=== PATIENT | female | born 1945 | race Caucasian/White ===

== ENCOUNTER 2020-09-22 12:25 | Inpatient (IN) | payer MEDICARE, OTHER ==
[~2020-09-22] VITALS: Ht 165.1 cm; Wt 74.4 kg
[~2020-09-22 12:25] MED LIST: ALEN70TA3 PO; ASCO-352 PO; CALC1POW PO; CHOL200026 PO; DOCU-141 PO; LEVO100T13 PO; LORA10TA7 PO; MELO-107 PO; OXYC30TA2 PO; PANT40TA2 PO; [UNRECOGNIZED DRUG - CODE] PO
[2020-09-22] MEDS ORDERED: IV NS 0.9% 1,000 ML BAG IV ONE (13:00)
[2020-09-22] MEDS ORDERED: CEFEPIME 1 GM in IV D5W 50 ML IV ONE (13:00)
[2020-09-22] MEDS ORDERED: VANCOMYCIN 1 GM in IV D5W 250 ML IV ONE (13:00)
[2020-09-22 13:22] LABS: BASOPHILS % (AUTO) 0.6 % (0.0-2.0); EOSINOPHILS % (AUTO) 0.2 % (0.0-6.0); HEMATOCRIT 46 % (33-45); HEMOGLOBIN 15.7 g/dL (11.5-14.8); LYMPHOCYTES # (AUTO) 0.2 /CMM (0.8-4.8); LYMPHOCYTES % (AUTO) 2.8 % (20.0-44.0); MEAN CORPUSCULAR HGB CONC 34 g/dl (31.0-36.0); MEAN CORPUSCULAR VOLUME 101 fL (82-100); MONOCYTES # (AUTO) 0.4 /CMM (0.1-1.30); MONOCYTES % (AUTO) 6.5 % (2.0-12.0); NEUTROPHILS # (AUTO) 4.9 /CMM (1.8-8.9); NEUTROPHILS % (AUTO) 89.9 % (43.0-81.0); PLATELET COUNT (AUTO) 112 /CMM (150-450); RED BLOOD CELL COUNT(AUTO) 4.53 MIL/uL (4.0-5.2); WHITE BLOOD COUNT (AUTO) 5.4 K/uL (4.3-11.0)
[2020-09-22 13:26] LABS: CALCIUM, SERUM 8.8 mg/dL (8.5-10.1); CARBON DIOXIDE 24 mmol/L (21-32); CHLORIDE 103 mmol/L (98-107); CREATININE 0.9 mg/dL (0.6-1.3); GLUCOSE 186 mg/dL (74-106); SODIUM SERUM 141 mmol/L (136-145); UREA NITROGEN, BLOOD 16 mg/dL (7-18)
[2020-09-22 13:28] LABS: POTASSIUM 2.5 mmol/L (3.5-5.1)
--- NOTE | 2020-09-22 13:28 | NUR ---
LAB CALLED POTASSIUM 2.5 ALBIN INFORMED.
[2020-09-22] MEDS ORDERED: CLOT15CR27 TP (13:30)
[2020-09-22] MEDS ORDERED: LEVO25TA7 PO (13:30)
[2020-09-22] MEDS ORDERED: SULF5DRO OP (13:30)
[2020-09-22] MEDS ORDERED: OMEP1PAC7 PO (13:30)
[2020-09-22] MEDS ORDERED: POTASSIUM CHLORIDE 20 MEQ TAB.PRT.SR PO ONE ×2 (13:30→14:10)
[2020-09-22] MEDS ORDERED: LOSA100T31 PO (13:30)
[2020-09-22] MEDS ORDERED: TRIA80OI TP (13:30)
[2020-09-22] MEDS ORDERED: IBUP-1953 PO (13:30)
[2020-09-22] MEDS ORDERED: METO25TA6 PO (13:30)
[2020-09-22] MEDS ORDERED: AMLO5TAB4 PO (13:30)
[2020-09-22 13:31] LABS: ALANINE AMINOTRANSFERASE 18 U/L (12-78); ALBUMIN 3.7 g/dL (3.4-5.0); ALKALINE PHOSPHATASE 113 U/L (46-116); ASPARTATE AMINOTRANSFERASE 21 U/L (15-37); BILIRUBIN,DIRECT 0.2 mg/dL (0.0-0.2); BILIRUBIN,TOTAL 0.8 mg/dL (0.2-1.0); TOTAL PROTEIN, SERUM 6.8 g/dL (6.4-8.2)
--- NOTE | 2020-09-22 13:31 | NUR ---
BIB ra frm snf s/o altered, febrile, and low o2 saturation. PT AAOX2, DENIES CP, DIZZINESS, N/V AT THIS TIME. PT PLACED ON ARCHITECTURAL DRAFTSMAN, SR. PLACED ON OXYGEN 6L, O2 SAT 96%. PT SEEN & EVAL'D BY DR. CUMMINGS. WILL CONT TO MONITOR.
[2020-09-22 13:56] LABS: BILIRUBIN,URINE NEGATIVE (NEGATIVE); COLOR,URINE YELLOW (YELLOW); LEUKOCYTE ESTERASE ,URINE NEGATIVE (NEGATIVE); NITRITE, URINE NEGATIVE (NEGATIVE); PROTEIN,URINE 100 mg/dl (NEGATIVE); UGLUCOSE NEGATIVE (NEGATIVE); UROBILINOGEN,URINE 0.2 EU/dL (0.2)
[2020-09-22] MEDS ORDERED: POTASSIUM CL. PREMIX PERIPHER. 100 ML ONE (14:10)
--- NOTE | 2020-09-22 14:15 | NUR ---
PT TO CT VIA [facility]
[2020-09-22 14:34] LABS: WBC,URINE 0-2 /HPF (0-3)
[2020-09-22 14:35] LABS: BACTERIA,URINE RARE /HPF (None Seen); SQUAMOUS EPITHELIAL CELL,UR 0-2 /HPF (None Seen)
[2020-09-22] MEDS: POTASSIUM CL. PREMIX PERIPHER. 50 ML IV SCH ×2 (14:46→15:40)
--- NOTE | 2020-09-22 15:02 | NUR ---
Pt assigned to 118-1
[2020-09-22] MEDS ORDERED: ONDANSETRON HCL/PF 4 MG/2 ML VIAL IV PRN (15:30)
[2020-09-22] MEDS ORDERED: METOPROLOL TARTRATE 25 MG TABLET PO SCH (15:30)
[2020-09-22] MEDS ORDERED: AMLODIPINE BESYLATE 5 MG TABLET PO SCH (15:30)
[2020-09-22] MEDS ORDERED: IOHEXOL-350 100 ML VIAL IV ONE (15:52)
[2020-09-22] MEDS ORDERED: CT SWABBABLE VALVE TRANS SET 1 EA INFUS.SET MC ONE (15:52)
[2020-09-22] MEDS ORDERED: IV NS 0.9% 250 ML IV ONE (15:52)
[2020-09-22] MEDS: IV NS 0.9% 1,000 ML IV SCH (16:00)
[2020-09-22] MEDS ORDERED: LABETALOL HCL IV 100MG VIAL IV PRN (16:00)
--- NOTE | 2020-09-22 16:00 | NUR ---
PT TO CT VIA [facility].
[2020-09-22] MEDS ORDERED: ACETAMINOPHEN 650 MG/20.3 ML UDC ONE ×2 (16:13→16:25)
[2020-09-22] MEDS ORDERED: LABETALOL HCL IV 100MG VIAL ONE (16:13)
[2020-09-22] MEDS: ACETAMINOPHEN 650 MG/20.3 ML UDC NG PRN (16:28)
--- NOTE | 2020-09-22 16:28 | NUR ---
MEDICATED PER DR. HONG'S ORDER, PT NORBERTO WELL.
[2020-09-22] MEDS ORDERED: VANCOMYCIN 1 GM in IV D5W 250 ML IV SCH (17:00)
--- NOTE | 2020-09-22 17:06 | NUR ---
REPORT GIVEN TO ARUNA RAMOS FOR BEVERLY.
[2020-09-22 17:29] VITALS: BP 149/65
--- NOTE | 2020-09-22 17:30 | NUR ---
OBJECT ORIENTED DEVELOPER NOTES RECEIVED PT FROM ER, DX SEPSIS, DR. VÁZQUEZ FOR MD, PT LETHARGIC,RESPONDS TO NAME AND TOUCH, IRRITATED. ON 4L O2 NASAL CANULA, NO SOB, RESPIRATION UNLABORED. COMPLAINS OF 10/10 GENERALIZED PAIN, SCREAMS WHEN BEING MOVED. WILL ADMINISTER PAIN MED IN A FEW. SINUS RHYTHM ON MONITOR. HAS LEFT HAND G 18 AND RT HAND G 20. BOTH FLUSHES WELL. BOTH SITES CLEAR. SKIN INTACT. UNIT ORIENTATION DONE, USE OF CALL LIGHT, UNABLE TO UNDERSTAND INSTRUCTIONS. SAFETY MEASURES IN PLACE. BED LOW LOCKED, CALL LIGHT WITHIN REACH WILL MONITOR.
[2020-09-22] MEDS: MORPHINE SULFATE INJ 2 MG/ML DISP.SYRIN IV PRN (17:42)
[2020-09-22] MEDS ORDERED: PIPERACILLIN /TAZOBACTAM 3.375 G in IV D5W 50 ML IV SCH (18:00)
--- NOTE | 2020-09-22 19:07 | NUR ---
RN NOTE ALL NEEDS MET. NOT IN ANY DISTRESS. ENDORSED TO NEXT SHIFT FOR BEVERLY.
--- NOTE | 2020-09-22 19:30 | NUR ---
RN NOTE RECEIVED PATIENT IN BED, AO X 2, IN NO S/SX OF ACUTE DISTRESS AT THIS TIME. SATURATION AT 95% ON 4L OXYGEN VIA NC, ST ON THE MONITOR, HR IS 103. NOTED IV SITE L HAND 18G, AND R HAND 20G, ALL HUBS PATENT AND FLUSHING WELL, NO S/S OF INFECTION OR INFILTRATION, WITH IV FLUID OF NS INFUSING AT 90 ML./HR. MI CATHETER CONNECTED TO URINE BAG IN PLACE, DRAINING TO A CLEAR, YELLOW OUTPUT. SAFETY MEASURES IMPLEMENTED. PATIENT BED ALARM IS ON. HEAD OF BED ELEVATED. BED IS LOCKED, IN LOWEST POSITION AND SIDE RAILS UP. CALL LIGHT WITHIN REACH OF THE PATIENT. WILL CONTINUE TO MONITOR AND REASSESS FOR ANY CHANGES.
[2020-09-22 20:00] VITALS: BP 198/104
[2020-09-22] MEDS: CEFEPIME 1 GM in IV D5W 50 ML IV SCH (20:35)
[2020-09-22] MEDS: ENOXAPARIN SODIUM 40 MG/0.4 ML DISP.SYRIN SQ SCH (20:42)
[2020-09-22] MEDS: METOPROLOL TARTRATE 25 MG TABLET PO SCH (20:42)
[2020-09-22] MEDS: hydrALAZINE HCL IV 20 MG VIAL IV PRN (22:38)
[2020-09-23] VITALS: BP 179/102
[2020-09-23] MEDS: MORPHINE SULFATE INJ 2 MG/ML DISP.SYRIN IV PRN ×4 (00:01→18:29)
[2020-09-23] MEDS: ACETAMINOPHEN 650 MG/20.3 ML UDC NG PRN ×2 (01:23→20:03)
[2020-09-23] MEDS: IV NS 0.9% 1,000 ML IV SCH (03:22)
[2020-09-23] MEDS: VANCOMYCIN 1 GM in IV D5W 250 ML IV SCH (05:23)
[2020-09-23] MEDS ORDERED: LEVOTHYROXINE SODIUM 100 MCG TABLET PO SCH (07:30)
--- NOTE | 2020-09-23 07:30 | NUR ---
RN OPENING NOTES PATIENT PRESENT IN BED, A/OX1,, ON NC @ 4L, CONT O2 SAT IN PLACE, SPO2 97%, NSR ON TELE-MONOTR 83 HR NOTES, WHEEZING SOUNDS THROUGH LUNGS, PRODUCTIVE COUGH NOTED, PULLED OUT R HAND IV, L HAND IV PATENT AND INTACT, MI IN PLACE, DRAINING YELLOW URINE BY GRAVITY, SAFETY MEASURES IN PLACE, CALL LIGHT IN REACH, HOB ELEVATED, WILL CONT TO MONITOR
[2020-09-23] MEDS: PANTOPRAZOLE 40 MG TABLET.DR PO SCH (07:57)
[2020-09-23 07:58] LABS: BASOPHILS % (AUTO) 0.3 % (0.0-2.0); HEMATOCRIT 45 % (33-45); HEMOGLOBIN 15.7 g/dL (11.5-14.8); LYMPHOCYTES # (AUTO) 0.3 /CMM (0.8-4.8); LYMPHOCYTES % (AUTO) 3.7 % (20.0-44.0); MEAN CORPUSCULAR HGB CONC 35 g/dl (31.0-36.0); MEAN CORPUSCULAR VOLUME 100 fL (82-100); MONOCYTES # (AUTO) 0.5 /CMM (0.1-1.30); MONOCYTES % (AUTO) 6.3 % (2.0-12.0); NEUTROPHILS # (AUTO) 6.8 /CMM (1.8-8.9); NEUTROPHILS % (AUTO) 89.7 % (43.0-81.0); PLATELET COUNT (AUTO) 103 /CMM (150-450); RED BLOOD CELL COUNT(AUTO) 4.51 MIL/uL (4.0-5.2); WHITE BLOOD COUNT (AUTO) 7.5 K/uL (4.3-11.0)
[2020-09-23 08:00] VITALS: BP 151/93
[2020-09-23 08:24] LABS: BILIRUBIN,TOTAL 1.2 mg/dL (0.2-1.0); CALCIUM, SERUM 8.3 mg/dL (8.5-10.1); CREATININE 0.9 mg/dL (0.6-1.3); TOTAL PROTEIN, SERUM 6.3 g/dL (6.4-8.2)
[2020-09-23] MEDS: AMLODIPINE BESYLATE 5 MG TABLET PO SCH (08:26)
[2020-09-23] MEDS: METOPROLOL TARTRATE 25 MG TABLET PO SCH ×2 (08:27→21:25)
[2020-09-23] MEDS: CEFEPIME 1 GM in IV D5W 50 ML IV SCH ×2 (08:28→21:14)
[2020-09-23 08:40] LABS: THYROID STIMULATING HORMONE 0.051 uIU/mL (0.358-3.74)
[2020-09-23] MEDS: POTASSIUM CL. PREMIX PERIPHER. 50 ML IV SCH ×8 (10:00→21:13)
[2020-09-23] MEDS: POTASSIUM CHLORIDE 20 MEQ TAB.PRT.SR PO SCH ×3 (10:07→17:16)
[2020-09-23] MEDS: Potassium Chloride 40 MEQ in IV NS 0.9% 1,000 ML IV SCH ×2 (11:12→21:13)
[2020-09-23 12:00] VITALS: BP 165/93
[2020-09-23 16:00] VITALS: BP 149/87
--- NOTE | 2020-09-23 18:55 | NUR ---
RN CLOSING NOTE REMAINS IN BED, STABLE, MEDS GIVEN,CLEANED REPOSITIONED, WILL ENDORSE TO PM SHIFT RN FOR BEVERLY
[2020-09-23 20:00] VITALS: BP 154/90
--- NOTE | 2020-09-23 20:00 | NUR ---
RN NOTE PT RECEIVED IN BED A/A/O X1, ON 4 L NC SATING 96%, ON TELE MONITOR SHOWING SR WITH HR IN 90s. SAFETY MEASURES IN PLACE.
[2020-09-23] MEDS: ENOXAPARIN SODIUM 40 MG/0.4 ML DISP.SYRIN SQ SCH (21:26)
[2020-09-24] VITALS: BP 156/95
[2020-09-24] MEDS: VANCOMYCIN 1 GM in IV D5W 250 ML IV SCH ×3 (00:07→23:08)
[2020-09-24] MEDS: MORPHINE SULFATE INJ 2 MG/ML DISP.SYRIN IV PRN (01:37)
[2020-09-24 04:00] VITALS: BP 143/101
[2020-09-24 06:26] LABS: CALCIUM, SERUM 8.6 mg/dL (8.5-10.1); CREATININE 0.8 mg/dL (0.6-1.3); MAGNESIUM 1.7 mg/dL (1.8-2.4); PHOSPHORUS 2.3 mg/dL (2.5-4.9); POTASSIUM 3.6 mmol/L (3.5-5.1)
[2020-09-24 07:07] LABS: BASOPHILS % (AUTO) 0.2 % (0.0-2.0); EOSINOPHILS % (AUTO) 0.2 % (0.0-6.0); HEMATOCRIT 42 % (33-45); HEMOGLOBIN 14.5 g/dL (11.5-14.8); LYMPHOCYTES # (AUTO) 0.4 /CMM (0.8-4.8); LYMPHOCYTES % (AUTO) 4.8 % (20.0-44.0); MEAN CORPUSCULAR HGB CONC 35 g/dl (31.0-36.0); MEAN CORPUSCULAR VOLUME 100 fL (82-100); MONOCYTES # (AUTO) 0.6 /CMM (0.1-1.30); MONOCYTES % (AUTO) 7.4 % (2.0-12.0); NEUTROPHILS % (AUTO) 87.4 % (43.0-81.0); PLATELET COUNT (AUTO) 97 /CMM (150-450); RED BLOOD CELL COUNT(AUTO) 4.19 MIL/uL (4.0-5.2)
--- NOTE | 2020-09-24 07:20 | NUR ---
RN REPORT GIVEN TO ONCOMING SHIFT FOR BEVERLY.
[2020-09-24] MEDS ORDERED: Potassium Chloride 20 MEQ in IV NS 0.9% 1,000 ML IV PRN (08:00)
[2020-09-24] MEDS ORDERED: HYDROMORPHONE MDV 0.5 MG in IV D5W 50 ML IV PRN (08:00)
[2020-09-24] MEDS ORDERED: HYDROCODONE/APAP 5/325MG TABLET PO PRN (08:00)
--- NOTE | 2020-09-24 08:09 | NUR ---
ARABIC TRANSLATOR OPENING NOTES RECEIVED PATIENT IN BED, AWAKE, A/O X2. PATIENT ON OXYGEN THERAPY AT 4 LPM VIA NASAL CANNULA. COMPLAINING OF MILD PAIN. MATT MIDLINE PRESENT AND INTACT INFUSING KCL @ 90 MLS/HR. MI CATH PRESENT WITH YELLOW URINE DRAINING. SAFETY PRECAUTIONS IN PLACE; BED IN LOW POSITION AND LOCKED, RAILS UP X2, CALL LIGHT WITHIN REACH. WILL CONTINUE TO MONITOR PATIENT.
[2020-09-24] MEDS: POTASSIUM CHLORIDE 20 MEQ TAB.PRT.SR PO SCH ×3 (08:28→16:02)
[2020-09-24] MEDS: PANTOPRAZOLE 40 MG TABLET.DR PO SCH (08:28)
[2020-09-24] MEDS: AMLODIPINE BESYLATE 5 MG TABLET PO SCH (08:28)
[2020-09-24] MEDS: LEVOTHYROXINE SODIUM 50 MCG TABLET PO SCH (08:28)
[2020-09-24] MEDS: METOPROLOL TARTRATE 25 MG TABLET PO SCH ×2 (08:29→20:18)
[2020-09-24] MEDS: LOSARTAN POTASSIUM 50 MG TABLET PO SCH (08:29)
--- NOTE | 2020-09-24 08:30 | NUR ---
ANTHROPOLOGY INSTRUCTOR NOTES PATIENT COMPLAINING OF SEVERE PAIN 9/10 IN THE BACK; REQUESTING PRN PAIN MEDICATION. PRN MEDICATION ADMINISTERED.
[2020-09-24] MEDS: HYDROMORPHONE 1 MG/1 ML DISP.SYRIN IV PRN ×4 (08:34→21:01)
[2020-09-24] MEDS ORDERED: IOHEXOL-300 100 ML VIAL IV ONE (09:10)
[2020-09-24] MEDS ORDERED: CT SWABBABLE VALVE TRANS SET 1 EA INFUS.SET MC ONE (09:10)
[2020-09-24] MEDS ORDERED: IV NS 0.9% 250 ML IV ONE (09:10)
[2020-09-24] MEDS: CEFEPIME 1 GM in IV D5W 50 ML IV SCH ×2 (09:42→20:17)
[2020-09-24 09:47] LABS: BAND % (MANUAL) 8 % (0.0-5.0); LYMPHOCYTES % (MANUAL) 5 % (16-48); MONOCYTES % (MANUAL) 6 % (0-11.0); NEUTROPHILS % (MANUAL) 81 (42-76)
--- NOTE | 2020-09-24 10:06 | NUR ---
PER ARUNA VUONG, PATIENT DOES NOT WANT TO SIGN THE CONSENT FOR CT SCAN WITH CONTRAST, WILL NOTIFY ORDERING PHYSICIAN.
[2020-09-24] MEDS: Magnesium 1GM/D5W 100ML PREMIX 100 ML IV SCH ×2 (10:33→11:32)
[2020-09-24 10:55] VITALS: BP 155/87
--- NOTE | 2020-09-24 12:29 | NUR ---
PATIENT STILL REFUSED CT SCAN WITHOUT CONTRAST. ARUNA VUONG NOTIFIED.
[2020-09-24] MEDS: ENSURE ENLIVE 237 ML LIQUID (VANILLA) PO SCH ×2 (12:54→17:20)
--- NOTE | 2020-09-24 12:56 | NUR ---
BISQUE WARE DIPPER NOTES PATIENT COMPLAINING OF SEVERE PAIN 8/10 IN THE BACK; REQUESTING PRN PAIN MEDICATION. PRN MEDICATION ADMINISTERED.
[2020-09-24] MEDS: hydrALAZINE HCL IV 20 MG VIAL IV PRN (16:45)
--- NOTE | 2020-09-24 17:02 | NUR ---
COOLER TENDER NOTES PATIENT WITH BP OF 198/81. PRN APRESOLINE ADMINISTERED. ALSO PRN MEDICATION ADMINISTERED FOR PAIN 9 OUT OF 10. MD NOTIFIED WILL REASSESS.
--- NOTE | 2020-09-24 17:29 | NUR ---
UI DEVELOPER WITH ANGULAR JS NOTES BP IMPROVING 154/90 HR 85 O2 95% ON 4 LPM VIA NASAL CANNULA. WILL CONTINUE TO MONITOR.
--- NOTE | 2020-09-24 18:43 | NUR ---
BASIC COMBATANT SWIMMER CLOSING NOTES PATIENT REMAINS IN BED, IN AND OUT OF SLEEP, A/O X1, CONFUSED AT TIMES AND FORGETFUL. PATIENT ON OXYGEN THERAPY AT 4 LPM VIA NASAL CANNULA; SATURATING 95-97%. TELE MONITOR WITH A CURRENT READING OF SR 85 BPM. PAIN TREATED DURING SHIFT WITH PRN MEDICATION PER MD ORDER. MATT MIDLINE PRESENT AND INTACT INFUSING KCL @ 90 MLS/HR. MI CATH PRESENT WITH YELLOW URINE AND DAILY OUTPUT OF 1200 MLS. ALL NEEDS ATTENDED DURING THE DAY. SAFETY PRECAUTIONS IN PLACE; BED IN LOW POSITION AND LOCKED, RAILS UP X2, CALL LIGHT WITHIN REACH. WILL ENDORSE TO CHANNEL PROCESS SUPERVISOR NURSE.
--- NOTE | 2020-09-24 19:22 | NUR ---
METALSMITH APPRENTICE NOTES PATIENT RECEIVED IN BED, IN AND OUT OF SLEEP, A/O X1, CONFUSED AT TIMES AND FORGETFUL. PATIENT ON OXYGEN THERAPY AT 4 LPM VIA NASAL CANNULA; SATURATING 95-97%. TELE MONITOR WITH A CURRENT READING OF SR 85 BPM. MATT MIDLINE PRESENT AND INTACT INFUSING KCL @ 80 MLS/HR. MI CATH PRESENT WITH YELLOW URINE. ALL NEEDS ATTENDED AT THIS TIME. NO PAIN OR DISCOMFORT NOTED AT THIS TIME.SAFETY PRECAUTIONS IN PLACE; BED IN LOW POSITION AND LOCKED, RAILS UP X2, CALL LIGHT WITHIN REACH. WILL CONTINUE TO MONITOR.
[2020-09-24] MEDS: ENOXAPARIN SODIUM 40 MG/0.4 ML DISP.SYRIN SQ SCH (20:39)
[2020-09-24 20:46] VITALS: BP 160/97
[2020-09-25] MEDS: hydrALAZINE HCL IV 20 MG VIAL IV PRN
[2020-09-25] MEDS: HYDROMORPHONE 1 MG/1 ML DISP.SYRIN IV PRN ×6 (01:01→22:53)
[2020-09-25 05:17] VITALS: BP 150/72
[2020-09-25 06:30] LABS: BASOPHILS % (AUTO) 0.2 % (0.0-2.0); EOSINOPHILS % (AUTO) 0.1 % (0.0-6.0); HEMATOCRIT 39 % (33-45); HEMOGLOBIN 13.4 g/dL (11.5-14.8); LYMPHOCYTES # (AUTO) 0.5 /CMM (0.8-4.8); LYMPHOCYTES % (AUTO) 5.4 % (20.0-44.0); MEAN CORPUSCULAR HGB CONC 34 g/dl (31.0-36.0); MEAN CORPUSCULAR VOLUME 100 fL (82-100); MONOCYTES # (AUTO) 0.7 /CMM (0.1-1.30); MONOCYTES % (AUTO) 7.2 % (2.0-12.0); NEUTROPHILS # (AUTO) 8.2 /CMM (1.8-8.9); NEUTROPHILS % (AUTO) 87.1 % (43.0-81.0); PLATELET COUNT (AUTO) 113 /CMM (150-450); RED BLOOD CELL COUNT(AUTO) 3.87 MIL/uL (4.0-5.2); WHITE BLOOD COUNT (AUTO) 9.4 K/uL (4.3-11.0)
--- NOTE | 2020-09-25 06:45 | NUR ---
MANGLE ROLL OPERATOR NOTES PATIENT IN BED, IN AND OUT OF SLEEP, A/O X1- 2 CONFUSED AT TIMES AND FORGETFUL. PATIENT ON OXYGEN THERAPY AT 4 LPM VIA NASAL CANNULA; SATURATING 95-97%. TELE MONITOR. MIDLINE PRESENT AND INTACT INFUSING KCL @ 80 MLS/HR. MI CATH PRESENT WITH YELLOW URINE. ALL NEEDS ATTENDED THROUGHOUT THE SHIFT NO PAIN OR DISCOMFORT NOTED AT THIS TIME.SAFETY PRECAUTIONS IN PLACE; BED IN LOW POSITION AND LOCKED, RAILS UP X2, CALL LIGHT WITHIN REACH. WILL ENDORSE TO DAY SHIFT NURSE.
[2020-09-25 06:46] LABS: CALCIUM, SERUM 8.5 mg/dL (8.5-10.1); CREATININE 0.8 mg/dL (0.6-1.3); MAGNESIUM 1.8 mg/dL (1.8-2.4); PHOSPHORUS 2.5 mg/dL (2.5-4.9); POTASSIUM 3.1 mmol/L (3.5-5.1)
[2020-09-25 08:00] VITALS: BP 155/72
--- NOTE | 2020-09-25 08:00 | NUR ---
INSPECTOR TIMERS NOTE RECIEVED PATIENT IN BED, AWAKE EVEN AND UNLABORED RESPIRATION, O2@ 2LPM VIA NC O2 SAT OF 98%,HOB ELEVATED, ABLE TO VERBALIZE NEEDS, LEFT UPPER MIDLINE IV INFUSING WELL, PATENT, ON MI CATHETER CLEAR YELLOW URINE PATENT AND DRAINING VIA GRAVITY, WILL CONTINUE TO MONITOR RESIDENT, BED LOW,CALL LIGHT WITHIN REACH, SAFETY MEASURES OBSERVED.
[2020-09-25] MEDS: LEVOTHYROXINE SODIUM 50 MCG TABLET PO SCH (08:03)
[2020-09-25] MEDS: PANTOPRAZOLE 40 MG TABLET.DR PO SCH (08:03)
[2020-09-25 08:06] LABS: IMMUNOGLOBULIN A, SERUM 130 mg/dL (64-422); IMMUNOGLOBULIN G, SERUM 497 mg/dL (586-1602)
[2020-09-25 09:07] LABS: CANCER AG, 15-3 96.4 U/mL (0.0-25.0)
[2020-09-25] MEDS: CEFEPIME 1 GM in IV D5W 50 ML IV SCH ×2 (09:50→20:46)
[2020-09-25] MEDS: POTASSIUM CHLORIDE 20 MEQ TAB.PRT.SR PO SCH ×4 (09:50→17:03)
[2020-09-25] MEDS: AMLODIPINE BESYLATE 5 MG TABLET PO SCH ×2 (09:51→17:09)
[2020-09-25] MEDS: METOPROLOL TARTRATE 25 MG TABLET PO SCH ×2 (09:51→20:47)
[2020-09-25] MEDS: LOSARTAN POTASSIUM 50 MG TABLET PO SCH (09:51)
[2020-09-25] MEDS: ENSURE ENLIVE 237 ML LIQUID (VANILLA) PO SCH ×3 (09:53→16:59)
--- NOTE | 2020-09-25 10:28 | NUR ---
GRAPHIC ART SALES REPRESENTATIVE NOTE SEEN BY Marva BLANCO INFORMED ABOUT PATIENT LAB RESULT, POTASSIUM 3.1 MD AWARE, INFORMED ABOUT PATIENT PAIN COMPLAINS - PRN DILAUDID GIVEN ORDERED.
[2020-09-25] MEDS ORDERED: NALOXONE HCL 0.4 MG/ML AMPUL IV PRN (10:30)
[2020-09-25] MEDS ORDERED: ALBUTEROL FS 2.5 MG/0.5 ML VIAL.NEB NEB PRN (11:00)
[2020-09-25] MEDS ORDERED: IPRATROPIUM NEB FS 0.5 MG/2.5 ML AMPUL.NEB NEB PRN (11:00)
[2020-09-25] MEDS: oxyCODONE HCL SR 20MG TAB.SR.12H PO SCH ×2 (11:15→20:47)
[2020-09-25] MEDS: VANCOMYCIN 1 GM in IV D5W 250 ML IV SCH (12:26)
[2020-09-25] MEDS: FLUTICASONE/VILANTEROL 1 EACH BLST.W.DEV IH SCH (12:56)
--- NOTE | 2020-09-25 15:37 | NUR ---
SS Consult received for responsible republican to be contacted for medical decision making as pt. is confused. SW will follow up at later time.
--- NOTE | 2020-09-25 15:51 | NUR ---
INTERNATIONAL TRADE SPECIALIST NOTE BLOOD CX COLLECTED BY AUTOMOTIVE HEAVY MECHANIC
[2020-09-25 16:00] VITALS: BP 148/76
[2020-09-25] MEDS ORDERED: FUROSEMIDE 40 MG/4 ML VIAL IV ONE (17:30)
--- NOTE | 2020-09-25 17:55 | NUR ---
telephone betting clerk note chest x ray done as ordered Lasix ivp given as ordered
--- NOTE | 2020-09-25 19:01 | NUR ---
MACHINIST BRAKE NOTE PATIENT AWAKE ABLE TO VERBALIZE NEED, EVEN AND UNLABORED RESPIRATION, ON TELEMONITOR SR - HR OF 81, NO SHORTNESS OF BREATH, ON O2 VIA NASAL CANULA AT 4LPM, TOLERATING WELL, PAIN MEDICATION GIVEN ORDERED FOR CHRONIC BACK PAIN, NEEDS MET AND ANTICIPATED, SAFETY MEASURES OBSERVED, CALL LIGHT WITHIN REACH, WILL CONTINUE TO MONITOR, WILL ENDORSE TO NEXT SHIFT.
[2020-09-25 20:00] VITALS: BP 138/74
[2020-09-25] MEDS: ENOXAPARIN SODIUM 40 MG/0.4 ML DISP.SYRIN SQ SCH (20:48)
--- NOTE | 2020-09-25 22:39 | NUR ---
PARTY PLAN SALES AGENT NOTE PT ASKING FOR PAIN MED DUE TO PAIN 8/10 LOWER BACK, I WAS READY TO GIVE PT ASKED IS THIS MORPHINE AND I EXPLAINED, IT'S DILAUDID PT REFUSED TO TAKE IT. STATES "I WANT MORPHINE, DILAUDID MAKES MY HEART BEAT FASTER". INFORMED DR MARTIN.
--- NOTE | 2020-09-25 22:59 | NUR ---
SAMPLE BODY BUILDER NOTE DR VÁZQUEZ INFORMED REGARDING PAIN MED, PT WANTS MORPHINE INSTEAD DILAUDID. ORDER RECEIVED, NOTED AND CARRIED OUT.
[2020-09-25] MEDS: MORPHINE SULFATE INJ 4 MG/ML DISP.SYRIN IVP PRN (23:09)
--- NOTE | 2020-09-25 23:14 | NUR ---
DRAW TENDER NOTE AFTER OPENING DILAUDID PACKING RETURNED THE MED BACK IN RETURN LOCKER WITNESSED BY CHARGE NURSE CARLITO. MORPHINE SULFATE 4 MG IVP GIVEN. CONTINUE TO MONITOR HER.
--- NOTE | 2020-09-25 23:45 | NUR ---
MEDICAL INSURANCE CLAIMS SPECIALIST NOTE PAIN SUBSIDED 2. CONTINUE TO MONITOR HER.
[2020-09-25] MEDS: IPRATROPIUM NEB FS 0.5 MG/2.5 ML AMPUL.NEB NEB SCH (23:47)
[2020-09-25] MEDS: ALBUTEROL FS 2.5 MG/0.5 ML VIAL.NEB NEB SCH (23:47)
[2020-09-26] MEDS: VANCOMYCIN 1 GM in IV D5W 250 ML IV SCH ×2 (00:08→12:35)
[2020-09-26] MEDS: MORPHINE SULFATE INJ 4 MG/ML DISP.SYRIN IVP PRN ×4 (03:21→23:01)
--- NOTE | 2020-09-26 03:21 | NUR ---
CHINESE TEACHER NOTE PT C/O PAIN IN LOWER BACK 12/04 MORPHINE SULFATE 4 MG IVP GIVEN. CONTINUE TOMONITOR HER .
--- NOTE | 2020-09-26 03:51 | NUR ---
PUBLIC POLICY ASSOCIATE NOTE PAIN SUBSIDE. CONTINUE TO MONITOR HER.
[2020-09-26 05:08] LABS: *SPE A/G RATIO 1.1 (0.7-1.7); *SPE ALBUMIN 2.7 g/dL (2.9-4.4); *SPE ALPHA-1-GLOBULIN 0.4 g/dL (0.0-0.4); *SPE ALPHA-2-GLOBULIN 0.6 g/dL (0.4-1.0); *SPE BETA GLOBULIN 0.8 g/dL (0.7-1.3); *SPE GLOBULIN, TOTAL 2.4 g/dL (2.2-3.9); *SPE M-SPIKE Not Observed g/dL (Not Observed); *SPEGAMMA GLOBULIN 0.5 g/dL (0.4-1.8)
[2020-09-26 06:27] LABS: BASOPHILS % (AUTO) 0.1 % (0.0-2.0); EOSINOPHILS % (AUTO) 0.4 % (0.0-6.0); HEMATOCRIT 36 % (33-45); HEMOGLOBIN 12.5 g/dL (11.5-14.8); LYMPHOCYTES # (AUTO) 0.5 /CMM (0.8-4.8); LYMPHOCYTES % (AUTO) 6.6 % (20.0-44.0); MEAN CORPUSCULAR HGB CONC 35 g/dl (31.0-36.0); MEAN CORPUSCULAR VOLUME 100 fL (82-100); MONOCYTES # (AUTO) 0.6 /CMM (0.1-1.30); MONOCYTES % (AUTO) 8.5 % (2.0-12.0); NEUTROPHILS # (AUTO) 6.4 /CMM (1.8-8.9); NEUTROPHILS % (AUTO) 84.4 % (43.0-81.0); PLATELET COUNT (AUTO) 123 /CMM (150-450); WHITE BLOOD COUNT (AUTO) 7.6 K/uL (4.3-11.0)
[2020-09-26 06:45] LABS: CALCIUM, SERUM 8.2 mg/dL (8.5-10.1); CREATININE 0.8 mg/dL (0.6-1.3)
[2020-09-26 06:58] LABS: POTASSIUM 3.3 mmol/L (3.5-5.1)
--- NOTE | 2020-09-26 07:30 | NUR ---
RN OPENING NOTES Patient is alert and oriented x1/2. On 02 3 liters via n/c with 02 sat of 95%. left upper arm midline patent and flushed well. Lara cath in place and draining well. Bed is in lowest and locked position. Call light with in reach.
[2020-09-26] MEDS: PANTOPRAZOLE 40 MG TABLET.DR PO SCH (07:54)
[2020-09-26] MEDS: LEVOTHYROXINE SODIUM 50 MCG TABLET PO SCH (07:54)
[2020-09-26 08:00] VITALS: BP 135/63
[2020-09-26] MEDS: ALBUTEROL FS 2.5 MG/0.5 ML VIAL.NEB NEB SCH ×2 (08:05→16:07)
[2020-09-26] MEDS: IPRATROPIUM NEB FS 0.5 MG/2.5 ML AMPUL.NEB NEB SCH ×2 (08:05→16:07)
[2020-09-26] MEDS: POTASSIUM CHLORIDE 20 MEQ TAB.PRT.SR PO SCH ×3 (08:47→17:14)
[2020-09-26] MEDS: FLUTICASONE/VILANTEROL 1 EACH BLST.W.DEV IH SCH (08:47)
[2020-09-26] MEDS: CEFEPIME 1 GM in IV D5W 50 ML IV SCH ×2 (08:47→20:47)
[2020-09-26] MEDS: METOPROLOL TARTRATE 25 MG TABLET PO SCH ×2 (08:48→21:00)
[2020-09-26] MEDS: AMLODIPINE BESYLATE 5 MG TABLET PO SCH ×2 (08:48→17:14)
[2020-09-26] MEDS: oxyCODONE HCL SR 20MG TAB.SR.12H PO SCH (08:48)
[2020-09-26] MEDS: LOSARTAN POTASSIUM 50 MG TABLET PO SCH (08:49)
[2020-09-26] MEDS: ENSURE ENLIVE 237 ML LIQUID (VANILLA) PO SCH ×3 (09:00→16:25)
[2020-09-26 12:07] LABS: IMMUNOGLOBULIN M, SERUM 36 mg/dL (26-217)
--- NOTE | 2020-09-26 14:54 | NUR ---
Regional Marketing Director note: Regional Marketing Director follow up for responsible green party to be contacted for medical decision making as patient still presents confused. SW attempted to locate medical decision maker and contacted Don Amaya, , who stated that he is unable to make medical decisions for the patient as he is not a blood relative. SS will continue to follow up.
--- NOTE | 2020-09-26 19:31 | NUR ---
RN CLOSING NOTES Patient is alert and oriented x1/2. On 02 2 liters via n/c with 02 sat of 98%. left upper arm midline patent and flushed well. Lara cath in place and draining well with output of 950 cc. Bed is in lowest and locked position. Call light with in reach. Endorsed to next shift for karol.
--- NOTE | 2020-09-26 19:32 | NUR ---
RN NOTE RECEIVED PATIENT IN BED, AO X 2, IN NO S/SX OF ACUTE DISTRESS AT THIS TIME. SATURATION AT 95% ON 2L OXYGEN VIA NC, HR IS 89. MATT MIDLINE INTACT, ALL HUBS PATENT AND FLUSHING WELL, NO S/S OF INFECTION NOTED. MI CATHETER CONNECTED TO URINE BAG IN PLACE, DRAINING TO A CLEAR, YELLOW OUTPUT. SAFETY MEASURES IMPLEMENTED. PATIENT BED ALARM IS ON. HEAD OF BED ELEVATED. BED IS LOCKED, IN LOWEST POSITION AND SIDE RAILS UP. CALL LIGHT WITHIN REACH OF THE PATIENT. WILL CONTINUE TO MONITOR AND REASSESS FOR ANY CHANGES.
[2020-09-26 20:00] VITALS: BP 138/72
[2020-09-26] MEDS: oxyCODONE HCL SR 10MG TAB.SR.12H PO SCH (21:01)
[2020-09-26] MEDS: ENOXAPARIN SODIUM 40 MG/0.4 ML DISP.SYRIN SQ SCH (21:02)
[2020-09-27] MEDS: IPRATROPIUM NEB FS 0.5 MG/2.5 ML AMPUL.NEB NEB SCH ×3 (00:11→14:38)
[2020-09-27] MEDS: ALBUTEROL FS 2.5 MG/0.5 ML VIAL.NEB NEB SCH ×3 (00:11→14:38)
[2020-09-27] MEDS: VANCOMYCIN 1 GM in IV D5W 250 ML IV SCH ×2 (00:28→12:17)
[2020-09-27 04:00] VITALS: BP 129/67
[2020-09-27] MEDS: MORPHINE SULFATE INJ 4 MG/ML DISP.SYRIN IVP PRN ×3 (04:16→18:03)
[2020-09-27] MEDS: ACETAMINOPHEN 650 MG/20.3 ML UDC NG PRN ×2 (04:59→20:55)
--- NOTE | 2020-09-27 05:00 | NUR ---
RN NOTE NOTED TEMP 100.3 AT 0400, COOLING MEASURES PROVIDED, PRN TYLENOL ADMINISTERED ORDERED. TEMP RECHECKED AND REVEALED 98.4 DEGREES. WILL CONTINUE TO MONITOR.
[2020-09-27 06:07] LABS: BASOPHILS % (AUTO) 0.3 % (0.0-2.0); EOSINOPHILS % (AUTO) 1.1 % (0.0-6.0); HEMATOCRIT 38 % (33-45); HEMOGLOBIN 13.3 g/dL (11.5-14.8); LYMPHOCYTES # (AUTO) 0.5 /CMM (0.8-4.8); LYMPHOCYTES % (AUTO) 6.4 % (20.0-44.0); MEAN CORPUSCULAR HGB CONC 35 g/dl (31.0-36.0); MEAN CORPUSCULAR VOLUME 100 fL (82-100); MONOCYTES # (AUTO) 1.1 /CMM (0.1-1.30); MONOCYTES % (AUTO) 13.2 % (2.0-12.0); NEUTROPHILS # (AUTO) 6.8 /CMM (1.8-8.9); PLATELET COUNT (AUTO) 135 /CMM (150-450); RED BLOOD CELL COUNT(AUTO) 3.82 MIL/uL (4.0-5.2); WHITE BLOOD COUNT (AUTO) 8.6 K/uL (4.3-11.0)
[2020-09-27 06:37] LABS: CALCIUM, SERUM 8.1 mg/dL (8.5-10.1); CREATININE 0.8 mg/dL (0.6-1.3); MAGNESIUM 1.9 mg/dL (1.8-2.4); PHOSPHORUS 2.6 mg/dL (2.5-4.9); POTASSIUM 3.5 mmol/L (3.5-5.1)
[2020-09-27] MEDS: PANTOPRAZOLE 40 MG TABLET.DR PO SCH (07:59)
[2020-09-27] MEDS: LEVOTHYROXINE SODIUM 50 MCG TABLET PO SCH (07:59)
[2020-09-27 08:00] VITALS: BP 100/52
[2020-09-27] MEDS: oxyCODONE HCL SR 10MG TAB.SR.12H PO SCH ×3 (08:42→20:56)
[2020-09-27] MEDS: CEFEPIME 1 GM in IV D5W 50 ML IV SCH (08:42)
[2020-09-27] MEDS: POTASSIUM CHLORIDE 20 MEQ TAB.PRT.SR PO SCH ×3 (08:42→18:01)
[2020-09-27] MEDS: FLUTICASONE/VILANTEROL 1 EACH BLST.W.DEV IH SCH (08:42)
[2020-09-27] MEDS: LOSARTAN POTASSIUM 50 MG TABLET PO SCH (08:43)
[2020-09-27] MEDS: ENSURE ENLIVE 237 ML LIQUID (VANILLA) PO SCH ×3 (08:44→17:00)
[2020-09-27] MEDS: METOPROLOL TARTRATE 25 MG TABLET PO SCH ×2 (08:44→21:45)
[2020-09-27] MEDS: AMLODIPINE BESYLATE 5 MG TABLET PO SCH ×2 (08:52→18:02)
--- NOTE | 2020-09-27 10:45 | NUR ---
Upper Cutter Out note: multicultural services librarian follow up to locate medical decision maker. SW contacted [facility], [address] [place] [id number]; [phone]. SHANTEL spoke to intake supervisor of operations, Kristi who stated that the patient has no medical decision maker or family contacts on file. Kristi stated that the patient can return to the [facility] at the time of discharge. No further SS intervention, however, SHANTEL will remain available as needed.
[2020-09-27] MEDS ORDERED: LIDOCAINE 1%-EPI 1:100,000 20 ML VIAL TP ONE (11:30)
[2020-09-27] MEDS ORDERED: HYDROCODONE/APAP 5/325MG TABLET PO ONE (12:20)
[2020-09-27] MEDS ORDERED: FUROSEMIDE 20 MG/2 ML VIAL IV ONE (12:30)
--- NOTE | 2020-09-27 13:30 | NUR ---
MD Cohn spoke to patient at bedside. Patient x 4 when evaluated by MD. MD obtained consent. Patient had biopsy of right breast mass with incisional by Eliceo Perez. Sample sent to pathology lab by writer producer. Patient monitored for s/s of bleeding at site. One suture applied by . No s/s of bleeding noted.
[2020-09-27] MEDS: CEFTRIAXONE 2 G in IV D5W 100 ML IV SCH (13:33)
[2020-09-27 16:00] VITALS: BP 121/65
--- NOTE | 2020-09-27 19:28 | NUR ---
RN CLOSING NOTES Patient is alert and oriented. On 02 2 liters via n/c with 02 sat of 96%. Left upper arm midline patent and flushed well. Lara cath in place and draining well with output of 1900 cc. Bed is in lowest and locked position. Call light with in reach. Endorsed to next shift for karol.
--- NOTE | 2020-09-27 19:30 | NUR ---
RN OPENING NOTES RECD PT IN BED, RESTING. AWAKENS EASILY. PT IS A/OX3 FORGETFUL. PT ON 3L OF O2 VIA NC, TOLERATING WELL. O2 SATURATION 96% NO SOB OR RESP DISTRESS. PT ON MED SURG MONITORING. PT HAS MI CATH DRAINING VIA GRAVITY. ALL NEEDS ATTENDED AT THIS TIME. SAFETY MEASURES IN PLACE. HOB ELEVATED TOLERATED. SIDE RAILS UP X3, BED LOCKED IN LOWEST POSITION WITH BED ALARM ON. CALL LIGHT WITHIN REACH. WILL CONT TO MONITOR. Addendum: 09/27/20 at 2207 by MANUEL SANCHEZ RN MATT MIDLINE FLUSHED ASEPTICALLY NO S/S OF INFILTRATION NOTED
[2020-09-27 20:00] VITALS: BP 112/55
[2020-09-27] MEDS: ENOXAPARIN SODIUM 40 MG/0.4 ML DISP.SYRIN SQ SCH (20:57)
--- NOTE | 2020-09-27 21:20 | NUR ---
RN NOTE ORAL TEMP PF 100.3 NOTED. PRN TYLENOL ADMINISTERED ORDERED. COOLING MEASURES APPLIED. WILL CONT TO MONITOR
[2020-09-28] MEDS: IPRATROPIUM NEB FS 0.5 MG/2.5 ML AMPUL.NEB NEB SCH ×3 (00:05→15:24)
[2020-09-28] MEDS: ALBUTEROL FS 2.5 MG/0.5 ML VIAL.NEB NEB SCH ×3 (00:05→15:24)
--- NOTE | 2020-09-28 00:20 | NUR ---
RN NOTE RECHECKED TEMP IS 98.6 WILL CONT TO MONITOR
[2020-09-28 04:00] VITALS: BP 122/68
[2020-09-28 06:26] LABS: CALCIUM, SERUM 8.2 mg/dL (8.5-10.1); CREATININE 0.8 mg/dL (0.6-1.3); MAGNESIUM 2.1 mg/dL (1.8-2.4); PHOSPHORUS 3.6 mg/dL (2.5-4.9)
--- NOTE | 2020-09-28 06:39 | NUR ---
RN CLOSING NOTES NO SIGNIFICANT CHANGES IN PT CONDITION. PT AT THIS TIME IS RESTING, AWAKENS EASILY. STILL ON 3L OF O2. NO S/S OF SOB OR RESP DISTRESS. TOLERATING WELL. PT AFEBRILE. LAST KNOWN TEMP IS 98.4. ALL NEEDS ATTENDED. SAFETY MEASURES IN PLACE. HOB ELEVATED. SIDE RAILS UP X2 BED LOCKED IN LOWEST POSITION BED ALARM ON. CALL LIGHT WITHIN REACH. WILL ENDORSE TO DAY SHIFT RN FOR CONTINUATION OF CARE
--- NOTE | 2020-09-28 07:25 | NUR ---
RN OPENING NOTES PATIENT RECEIVED IN BED RESTING IN SEMI-FOWLERS POSITION. PATIENT ON O2 THERAPY VIA NC AT 3L TOLERATING WELL. NO S/S OF SOB OR RESP DISTRESS NOTED. SAFETY MEASURES IMPLEMENTED, SIDE RAILS UP X2, BED LOCKED IN LOWEST POSITION, BED ALARM ON, CALL LIGHT WITHIN REACH. WILL CONTINUE TO MONITOR AND PROVIDE CARE THROUGHOUT SHIFT.
[2020-09-28 08:00] VITALS: BP 123/67
[2020-09-28] MEDS: PANTOPRAZOLE 40 MG TABLET.DR PO SCH (08:21)
[2020-09-28] MEDS: LEVOTHYROXINE SODIUM 50 MCG TABLET PO SCH (08:21)
[2020-09-28] MEDS: POTASSIUM CHLORIDE 20 MEQ TAB.PRT.SR PO SCH ×3 (08:22→17:00)
[2020-09-28] MEDS: FLUTICASONE/VILANTEROL 1 EACH BLST.W.DEV IH SCH (08:22)
[2020-09-28] MEDS: LOSARTAN POTASSIUM 50 MG TABLET PO SCH (08:23)
[2020-09-28] MEDS: METOPROLOL TARTRATE 25 MG TABLET PO SCH (08:24)
[2020-09-28] MEDS: oxyCODONE HCL SR 10MG TAB.SR.12H PO SCH (08:25)
[2020-09-28] MEDS: ENSURE ENLIVE 237 ML LIQUID (VANILLA) PO SCH ×3 (08:26→17:00)
[2020-09-28] MEDS: AMLODIPINE BESYLATE 5 MG TABLET PO SCH ×2 (09:00→17:00)
[2020-09-28] MEDS: MORPHINE SULFATE INJ 4 MG/ML DISP.SYRIN IVP PRN ×2 (11:22→19:25)
[2020-09-28] MEDS: CEFTRIAXONE 2 G in IV D5W 100 ML IV SCH (13:52)
[2020-09-28 13:56] LABS: BASOPHILS % (AUTO) 0.3 % (0.0-2.0); EOSINOPHILS % (AUTO) 0.9 % (0.0-6.0); HEMATOCRIT 40 % (33-45); HEMOGLOBIN 13.5 g/dL (11.5-14.8); LYMPHOCYTES # (AUTO) 0.5 /CMM (0.8-4.8); MEAN CORPUSCULAR HGB CONC 34 g/dl (31.0-36.0); MEAN CORPUSCULAR VOLUME 102 fL (82-100); MONOCYTES # (AUTO) 0.7 /CMM (0.1-1.30); MONOCYTES % (AUTO) 11.7 % (2.0-12.0); NEUTROPHILS # (AUTO) 4.7 /CMM (1.8-8.9); NEUTROPHILS % (AUTO) 79.1 % (43.0-81.0); PLATELET COUNT (AUTO) 199 /CMM (150-450)
--- NOTE | 2020-09-28 16:58 | NUR ---
patient discharged from hospital in stable condition. patient discharge instructions and paperwork provided for client and snf. report called and given to rn at [facility]. care transferred over to [facility] for transportation. Addendum: 09/28/20 at 1926 by ANIRUDH BELTRÁN RN report given to nurse at [facility].
[2020-09-28 17:00] VITALS: BP 129/69
== END 2020-09-28 19:20 | DRG 871 ==
LOC: ER 12:32 → TELE1 15:07 → MEDSG1 09-26 10:39
PROVIDERS: ADMIT Internal Medicine; ATTEND Internal Medicine
PROC: 05HC33Z Insertion of Infusion Device into Left Basilic Vein, Percutaneous Approach (ICD-10-PCS; principal; 2020-09-23)
PROC: 0HB5XZX Excision of Chest Skin, External Approach, Diagnostic (ICD-10-PCS; 2020-09-27)
DX: A41.1 Sepsis due to other specified staphylococcus (principal); J96.21 Acute and chronic respiratory failure with hypoxia; J69.0 Pneumonitis due to inhalation of food and vomit; G92 Toxic encephalopathy; L03.211 Cellulitis of face; J98.11 Atelectasis; I16.1 Hypertensive emergency; J44.1 Chronic obstructive pulmonary disease with (acute) exacerbation; J44.0 Chronic obstructive pulmonary disease with (acute) lower respiratory infection; E46 Unspecified protein-calorie malnutrition; C50.911 Malignant neoplasm of unspecified site of right female breast; Z20.822 Contact with and (suspected) exposure to COVID-19; F03.90 Unspecified dementia, unspecified severity, without behavioral disturbance, psychotic disturbance, mood disturbance, and anxiety; M81.0 Age-related osteoporosis without current pathological fracture; K21.9 Gastro-esophageal reflux disease without esophagitis; Z88.0 Allergy status to penicillin; Z91.012 Allergy to eggs; Z79.899 Other long term (current) drug therapy; Z79.83 Long term (current) use of bisphosphonates; M19.90 Unspecified osteoarthritis, unspecified site; Z79.890 Hormone replacement therapy; F29 Unspecified psychosis not due to a substance or known physiological condition; R73.9 Hyperglycemia, unspecified; I10 Essential (primary) hypertension; E87.6 Hypokalemia; D69.59 Other secondary thrombocytopenia; E03.9 Hypothyroidism, unspecified; G89.4 Chronic pain syndrome; E86.0 Dehydration; F17.200 Nicotine dependence, unspecified, uncomplicated; F19.10 Other psychoactive substance abuse, uncomplicated; F10.10 Alcohol abuse, uncomplicated; F41.9 Anxiety disorder, unspecified; H91.90 Unspecified hearing loss, unspecified ear; I73.9 Peripheral vascular disease, unspecified; J20.9 Acute bronchitis, unspecified; E80.6 Other disorders of bilirubin metabolism; Z82.3 Family history of stroke; Z91.19 Patient's noncompliance with other medical treatment and regimen
CPT/HCPCS: 36410; 36415; 70450-TC; 71045-TC; 72020-TC; 76642-RT-TC; 80048-TC; 80053-TC; 80076-TC; 80202-TC; 81001; 82784; 83605-TC; 83735-TC; 84100-TC; 84132-TC; 84155; 84165; 84439-TC; 84443-TC; 84484-TC; 85025-TC; 85730-TC; 86300; 86334; 87040-TC; 87081-TC; 87086-TC; 88305-TC; 93307-TC; 93970-TC; 94799-TC; 97112-TC; 97530-TC; G0378; J0360; J0692; J0696; J1170; J1650; J1940; J2270; J3370; J3475; J3480; J3490; J7030; J7050; J7060; Q9967; U0003